=== PATIENT | male | born 1965 | race Caucasian/White ===

== ENCOUNTER 2025-01-17 21:00 | Emergency (ER) | payer SELFPAY ==
[~2025-01-17] VITALS: Ht 142.2 cm; Wt 77.2 kg
[2025-01-17 22:09] VITALS: BP 125/70; PULSE 81; RESP 18; TEMP 97.5; O2SAT 97
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
[2025-01-17] MEDS: KETOROLAC TROMETH 60MG/2ML VIAL IM ONE (22:39)
[2025-01-17] MEDS ORDERED: CYCL-837 PO (22:40)
[2025-01-17] MEDS ORDERED: ACE3T PO (22:40)
--- NOTE | 2025-01-17 22:58 | DVH ---
INDICATION: lower back pain COMPARISON: None TECHNIQUE: 2 views of the lumbar spine were obtained. FINDINGS: The lumbar vertebral alignment is normal. There are marginal spurs suggesting osteoarthritic changes. Hypo lordosis of the lumbar spine suggesting muscle spasm. The intervertebral disc spaces are well-maintained. No significant facet arthropathy is noted. No acute fracture, vertebral compression deformity or aggressive osseous lesions. The paravertebral soft tissues are grossly unremarkable. IMPRESSION: 1. No acute fracture. 2. Marginal spurs suggesting osteoarthritic changes most pronounced at L2-L3 followed by L1-L2 3. Hypolordosis of the lumbar spine suggesting muscle spasm.
== END 2025-01-17 23:06 | disposition home or self-care (01) ==
LOC: ER 21:06
DX: S39.012A Strain of muscle, fascia and tendon of lower back, initial encounter (principal); Z98.890 Other specified postprocedural states; V89.2XXA Person injured in unspecified motor-vehicle accident, traffic, initial encounter; Y93.89 Activity, other specified; Y92.410 Unspecified street and highway as the place of occurrence of the external cause; Y99.8 Other external cause status
CPT/HCPCS: 72100; 96372; 99283; J1885

== ENCOUNTER 2025-04-13 21:50 | Emergency (ER) | payer SELFPAY ==
[~2025-04-13] VITALS: Ht 162.6 cm; Wt 65.5 kg
[~2025-04-13 21:50] MED LIST: ACE3T PO; CYCL-837 PO
[2025-04-13 23:05] LABS: Hematocrit 40.6 % (41.0-53.0); Hemoglobin 13.6 g/dL (13.5-17.5); Mean Corpuscular Hemoglobin 29.1 pg (28.0-32.0); Mean Corpuscular Volume 86.9 fL (80.0-100.0); Nucleated Red Blood Cells % 0.0 %
--- NOTE | 2025-04-13 23:06 | DVH ---
Exam: CT CT AB PEL WO CON-NO ORAL OR IV History: FLANK PAIN Comparison Study: None TECHNIQUE: Multidetector CT of the abdomen and pelvis was performed from lung bases to pubic symphysi s. Imaging was performed without IV contrast. Axial, coronal, and sagittal multiplanar reformats were obtained from the axial data set by the technologist. RADIATION DOSE: CTDI vol 6.1 mGy. DLP 369.06 mGy.cm Findings: Limited evaluation of the solid organs in the absence of IV contrast. Liver: Unremarkable. Spleen: Unremarkable. Pancreas: Unremarkable. Gallbladder: Unremarkable. Adrenals: Unremarkable Kidneys: Unremarkable. Pelvic Viscera: Prostatomegaly. Vasculature: Unremarkable. Retroperitoneum: Shotty retroperitoneal nodes. Bowel: No bowel obstruction. Musculoskeletal: Destructive changes across the opposing endplates of T10-11 with large associated pa raspinal soft tissue component abutting the aorta. There is an associated epidural abscess, difficult to assess via CT, though likely contributing to spinal stenosis. Soft tissues: Unremarkable Lungs: Basilar atelectasis/scarring. Impression: 1. Findings as above most suggestive of discitis/ osteomyelitis at T10-11. Large associated soft tis shira component in close proximity to the aorta. There is an associated epidural abscess which contribu claudia to spinal stenosis, suboptimally assessed via CT. Contrast-enhanced MRI is suggested in further evaluation. Neoplastic etiologies cannot be excluded and further clinical correlation is suggested. 2. Additional findings as detailed. Findings discussed with ED SANDY Weaver at 04/13/2025 11:03 PM, and acknowledged receipt and understanding of the findings.
[2025-04-13 23:19] LABS: Alanine Aminotransferase 20 U/L (7-40); Albumin 4.6 g/dL (3.2-4.8); Anion Gap 10 (5-15); BUN/Creatinine Ratio 6.1 (10.0-20.0); Calcium 9.4 mg/dL (8.7-10.4); Carbon Dioxide 25 mmol/L (20-31); Potassium 4.5 mmol/L (3.5-5.1)
[2025-04-13 23:20] LABS: Bilirubin, Total 1.1 mg/dL (0.2-1.0)
[2025-04-13 23:22] LABS: Alkaline Phosphatase 122 U/L (46-116); Blood Urea Nitrogen 5 mg/dL (9-23); Chloride 96 mmol/L (98-107); Glucose 139 mg/dL (74-106); Sodium 131 mmol/L (136-145); Total Protein 8.5 g/dL (5.7-8.2)
[2025-04-14] MEDS: methylPREDNISolone SOD SUCC 125 MG/2 ML VL IV ONE (00:21)
[2025-04-14] MEDS: MORPHINE SULFATE 4 MG/ML SYR/VIAL IV ONE (00:21)
[2025-04-14] MEDS: PIPERACILLIN-TAZOB 3.375GM 100 ML IV ONE (00:21)
--- NOTE | 2025-04-14 00:49 | ED.PDOC ---
History of Present Illness HPI Comments 59-year-old male complaining of back pain, right-sided flank pain and generalized fatigue and weakness. Patient states the weakness became much worse today. States he is having a hard time standing. Says it weakness in his lower extremities. states the patient did have one episode of bladder incontine nce today. Patient denies any fever or chills. Symptoms nothing makes it better, movement makes it worse. Patient was brought in a wheelchair. Has not had trauma denies any recent travel. Denies any heavy lifting. No prior history of back surgeries. Chief Complaint: Flank Pain Time Seen by MD: 22:08 Primary Care Provider: UNKNOWN Reviewed Notes: Nurses Notes Allergies: Coded Allergies: NO KNOWN ALLERGIES (Unverified , 01/17/25) Home Meds Active Scripts Cyclobenzaprine Hcl (Cyclobenzaprine Hcl) 5 Mg Tab, 1 TAB PO QHSP, #14 TAB 0 Refills Prov:KELTON MOJICA 01/17/25 Acetaminophen W/ Codeine (Tylenol W/Cod #3) 1 Tab Tb, 1 TAB PO Q6HPRN, #10 TAB 0 Refills Prov:KELTON MOJICA 01/17/25 Information Source: Patient, Relative, Spouse Mode of Arrival: Wheelchair Past Medical History PAST MEDICAL HISTORY: Denies Surgical History: Hernia Repair Family History Family History: Unknown Social History Smoker: Non-Smoker Alcohol: Denies ETOH Use Drugs: Denies Drug Use Lives In: Home Constitutional: reports: malaise, weakness; denies: chills, diaphoresis, fatigue, fever, sweats, others EENTM: denies: blurred vision, double vision, ear bleeding, ear discharge, ear drainage, ear pain, ear ringing, eye pain, eye redness, hearing loss, mouth pain, mouth swelling, nasal discharge, nose bleeding, nose congestion, nose pain, photophobia, tearing, throat pain, throat swelling, voice changes, others Respiratory: denies: cough, hemoptysis, orthopnea, SOB at rest, shortness of breath, SOB with excertion, stridor, wheezing, others Cardiovascular: denies: chest pain, dizzy spells, diaphoresis, Dyspnea on exertion, edema, irregular heart beat, left arm pain, lightheadedness, palpitations, PND, syncope, others Gastrointestinal: denies: abdomen distended, abdominal pain, blood streaked bowels, constipated, diarrhea, dysphagia, difficulty swallowing, hematemesis, melena, nausea, poor appetite, poor fluid intake, rectal bleeding, rectal pain, vomiting, others Genitourinary: denies: burning, dysuria, flank pain, frequency, hematuria, incontinence, penile discharge, penile sore, pain, testicle pain, testicle swelling, urgency, others Neurological: reports: weakness; denies: dizziness, fainting, headache, left sided numbness, left sided weakness, numbness, paresthesia, pre-existing deficit, right sided numbness, right sided weakness, seizure, speech problems, tingling, tremors, others Musculoskeletal: reports: back pain; denies: gout, joint pain, joint swelling, muscle pain, muscle stiffness, neck pain, others Integumetry: denies: bruises, change in color, change in hair/nails, dryness, laceration, lesions, lumps, rash, wounds, others Physical Exam General Appearance: Moderate Distress, Normal HEENT: Normal ENT Inspection, Pharynx Normal, TMs Normal Neck: Full Range of Motion, Non-Tender, Normal, Normal Inspection Respiratory: Chest Non-Tender, Lungs Clear, No Accessory Muscle Use, No Respiratory Distress, Normal Breath Sounds Cardiovascular: No Edema, No JVD, No Murmur, No Gallop, Normal Peripheral Pulses, Regular Rate/Rhythm Breast Exam: Deferred Gastrointestinal: No Organomegaly, Non Tender, No Pulsatile Mass, Normal Bowel Sounds, Soft Genitalia: Deferred Pelvic: Deferred Rectal: Deferred Extremities: Decreased range of motion Musculoskeletal : Location: Bilateral Extremity Location: Leg (Weakness) Apperance: Normal Neurologic: Alert, public administration professor II-XII nml as Tested, Motor Weakness, Normal Mood, No Sensory Deficits Cerebellar Function: Normal Reflexes: Normal Skin: Dry, Normal Color, Warm Lymphatic: No Adenopathy Was a procedure done? Was a procedure done?: No Differential Dx Considerations may include: hall cleaner, urinary tract infection, lumbar strain, sciatica X-Ray, Labs, Meds, VS Vital Signs Date Time Temp Pulse Resp B/P (MAP) Pulse Ox O2 Delivery O2 Flow Rate FiO2 04/14/25 01:00 78 21 108/80 (89) 93 04/14/25 00:51 78 21 108/80 04/14/25 00:21 85 16 124/89 04/14/25 00:05 Room Air* 0 21 04/14/25 00:02 85 124/89 (101) 04/14/25 00:00 85 04/13/25 21:52 98.7 107 18 134/69 98 98.7 Lab Test 04/13/25 22:39 Range/Units White Blood Count 14.8 H 4.4-10.8 10^3/uL Red Blood Count 4.67 4.5-5.90 10^6/uL Hemoglobin 13.6 13.5-17.5 g/dL Hematocrit 40.6 L 41.0-53.0 % Mean Corpuscular Volume 86.9 80.0-100.0 fL Mean Corpuscular Hemoglobin 29.1 28.0-32.0 pg Mean Corpuscular Hemoglobin Concent 33.5 32.0-36.0 g/dL Red Cell Distribution Width 15.3 H 11.8-14.3 % Platelet Count 352 140-450 10^3/uL Mean Platelet Volume 6.5 L 6.9-10.8 fL Neutrophils (%) (Auto) 81.4 H 37.0-80.0 % Lymphocytes (%) (Auto) 9.6 L 10.0-50.0 % Monocytes (%) (Auto) 8.8 0.0-12.0 % Eosinophils (%) (Auto) 0.1 0.0-7.0 % Basophils (%) (Auto) 0.1 0.0-2.0 % Neutrophils # (Auto) 12.0 H 1.6-8.6 10 ^3/uL Lymphocytes # (Auto) 1.4 0.4-5.4 10 ^3/uL Monocytes # (Auto) 1.3 0-1.3 10 ^3/uL Eosinophils # (Auto) 0 0-0.8 10 ^3/uL Basophils # (Auto) 0 0-0.2 10 ^3/uL Nucleated Red Blood Cells 0.0 % Sodium Level 131 L 136-145 mmol/L Potassium Level 4.5 3.5-5.1 mmol/L Chloride Level 96 L 98-107 mmol/L Carbon Dioxide Level 25 20-31 mmol/L Anion Gap 10 5-15 Blood Urea Nitrogen 5 L 9-23 mg/dL Creatinine 0.82 0.700-1.30 mg/dL Glomerular Filtration Rate Calc 100 >90 mL/min BUN/Creatinine Ratio 6.1 L 10.0-20.0 Serum Glucose 139 H 74-106 mg/dL Calcium Level 9.4 8.7-10.4 mg/dL Total Bilirubin 1.1 H 0.2-1.0 mg/dL Aspartate Amino Transferase (AST) 16 13-40 U/L Alanine Aminotransferase (ALT) 20 7-40 U/L Alkaline Phosphatase 122 H 46-116 U/L Total Protein 8.5 H 5.7-8.2 g/dL Albumin 4.6 3.2-4.8 g/dL Current Medications Medications (Trade) Dose Ordered Sig/Hi Route Start Time Stop Time Status Last Admin Piperacillin Sod/ Tazobactam Sod 100 ml @ 100 mls/hr ONCE ONCE IV 04/13/25 23:45 04/14/25 00:44 DC 04/14/25 00:21 Methylprednisolone Sodium Succinate (Solu Medrol) 125 mg ONCE ONCE IV 04/13/25 23:45 04/13/25 23:46 DC 04/14/25 00:21 Morphine Sulfate 4 mg ONCE ONCE IV 04/13/25 23:45 04/13/25 23:46 DC 04/14/25 00:21 Vancomycin HCl 250 ml @ 250 mls/hr ONCE ONCE IV 04/13/25 23:45 04/14/25 00:44 DC 04/14/25 01:00 X-Ray, Labs, Meds, VS Comment CT abdomen and pelvis: Impression: 1. Findings as above most suggestive of discitis/ osteomyelitis at T10-11. Large associated soft tissue component in close proximity to the aorta. There is an associated epidural abscess which contributes to spinal stenosis, suboptimally assessed via CT. Contrast-enhanced MRI is suggested in further evaluation. Neoplastic etiologies cannot be excluded and further clinical correlation is suggested. 2. Additional findings as detailed. Findings discussed with ED SANDY Weaver at 04/13/2025 11:03 PM, and acknowledged receipt and understanding of the findings. Patient requiring higher level care, patient will be transferred Recommend Neurosurgery and Oncology Patient be started on vancomycin and Zosyn Given Solu-Medrol SPOKE WITH DR. ANAYA AT [facility], ICU EMG TECHNICIAN, THEY WILL ACCEPT TRANSFER FOR HIGHER LEVEL OF CARE. THEY ARE PENDING TO SEE IF PATIENT WILL RECEIVE ICU BED OR HE WILL BE TRANSFERRED DIRECTLY TO EMERGENCY DEPARTMENT. Time of 1ST Reevaluation: 00:50 Reevaluation 1ST: Unchanged Consultation: Other (Spoke with Dr. Domingo at [facility], emergency room attending, he declines transfer, stating patient will require oncology, he states that his no surgery team will refused the case.) Patient Education/Counseling: Diagnosis, Treatment Family Education/Counseling: Diagnosis SEPSIS Sepsis Screen Date sepsis recognized/suspect: Apr 13, 2025 Time Sepsis recognized/suspect: 2151 Recent Procedure: No On Antibiotic Therapy: No Respiratory Rate >20: No Heart Rate >90: Yes Temp<36 C (96.8 F) or >38.3 C: No SBP <90 or MAP <65 mmHG: No New Acute Mental Status Change: No Is the patient on CPAP, BIPAP,: No Physician Orders Urinalysis (04/13/25 22:22) Ct Ab Pel Wo Con-No Oral Or Iv (04/13/25 22:22) Imaging Transfer Request (04/14/25 00:06) Vital Signs Date Time Temp Pulse Resp B/P (MAP) Pulse Ox O2 Delivery O2 Flow Rate FiO2 04/14/25 01:00 78 21 108/80 (89) 93 04/14/25 00:51 78 21 108/80 04/14/25 00:21 85 16 124/89 04/14/25 00:05 Room Air* 0 21 04/14/25 00:02 85 124/89 (101) 04/14/25 00:00 85 04/13/25 21:52 98.7 107 18 134/69 98 98.7 Laboratory Tests Test 04/13/25 22:39 White Blood Count 14.8 10^3/uL (4.4-10.8) H Medications Medications Dose Ordered Sig/Hi Route Start Time Stop Time Status Last Admin Dose Admin Methylprednisolone Sodium Succinate 125 mg ONCE ONCE IV 04/13/25 23:45 04/13/25 23:46 DC 04/14/25 00:21 Morphine Sulfate 4 mg ONCE ONCE IV 04/13/25 23:45 04/13/25 23:46 DC 04/14/25 00:21 Piperacillin Sod/ Tazobactam Sod 100 ml @ 100 mls/hr ONCE ONCE IV 04/13/25 23:45 04/14/25 00:44 DC 04/14/25 00:21 Vancomycin HCl 250 ml @ 250 mls/hr ONCE ONCE IV 04/13/25 23:45 04/14/25 00:44 DC 04/14/25 01:00 Departure 1 Departure Time of Disposition: 00:47 Impression: Primary Impression: Osteomyelitis of thoracic spine Additional Impression: Compression of spinal cord Disposition: 02 SHORT TERM HOSPITAL Condition: Guarded Critical Care Note Critical Care Time?: Yes (30 min-critical care time only) Critical care comment: I HAVE PERSONALLY SPENT 35 MINUTES OF CRITICAL CARE TIME, EXCLUSIVE OF THE TIME SPENT ON ANY PROCEDURES, IN EVALUATION AND MANAGEMENT OF THIS CRITICALLY ILL PATIENT'S CONDITIONS. I PROVIDED THE FOLLOWING CLEARED OF CARE TREATMENT: CHOICE OF ANTIBIOTICS, DISCUSSIONS WITH ER ATTENDINGS FOR TRANSFER, NEURO CHECKS HER LOWER EXTREMITIES Stability Stability form required: No Heart Score Heart Score: Heart Score Response (Comments) Value History N/A 0 EKG N/A 0 Age N/A 0 Risk Factors N/A 0 Troponin N/A 0 Total 0 DEMAR SHANE SAMPLE PULLER Apr 14, 2025 00:49
[2025-04-14] MEDS: VANCOMYCIN 1GM/250ML KIT 250 ML IV ONE (01:00)
[2025-04-14 03:51] VITALS: BP 110/71; PULSE 72; RESP 18; TEMP 97.6; O2SAT 98
== END 2025-04-14 00:05 | disposition short-term general hospital (02) ==
LOC: ER 21:50
DX: M46.24 Osteomyelitis of vertebra, thoracic region (principal); G95.20 Unspecified cord compression; Z98.890 Other specified postprocedural states; Z79.899 Other long term (current) drug therapy
CPT/HCPCS: 36415; 74176; 80053; 85025; 96365; 96367; 96375; 99285; J2270; J2543; J2919; J3373